=== PATIENT | female | born 1995 | race Caucasian/White ===

== ENCOUNTER 2017-02-03 14:18 | Day surgery (SDC) | payer OTHER ==
[2017-02-03 15:50] VITALS: BP 107/58; TEMP 99
[2017-02-03 15:52] VITALS: BMI 42.2
[2017-02-03] MEDS ORDERED: Ondansetron HCl/PF 4 MG/2 ML Vial IVP PRN (16:47)
[2017-02-03] MEDS ORDERED: Sodium Chloride 0.9% 1,000 ML IV SCH (17:00)
[2017-02-03] MEDS ORDERED: Lactated Ringer's 1,000 ML IV SCH (17:15)
[2017-02-03 17:23] LABS: Bilirubin Negative (Negative); Blood, Urine Negative (Negative); Glucose, Urine (Dipstick) Negative (Negative); Ketone, Urine 15 mg/dL (Negative); Nitrite Negative (Negative); Protein, Urine (Dipstick) Negative (Neg-Trace); Urobilinogen 0.2 mg/dL (0.2-1.0)
[2017-02-03] MEDS ORDERED: metroNIDAZOLE 500 MG TAB PO SCH (21:00)
== END 2017-02-03 20:20 | disposition home or self-care (01) ==
LOC: SCSER 14:18 → L&D/OP 15:19
PROVIDERS: ATTEND Student in an Organized Health Care Education/Training Program
DX: O47.03 False labor before 37 completed weeks of gestation, third trimester (principal); R56.9 Unspecified convulsions; J45.909 Unspecified asthma, uncomplicated; F41.9 Anxiety disorder, unspecified; Z3A.28 28 weeks gestation of pregnancy; Z88.8 Allergy status to other drugs, medicaments and biological substances
CPT/HCPCS: 81003; 87480; 87510; 87660; 96360; 96361; 96375; J2405

== ENCOUNTER 2017-02-13 20:56 | Emergency (ER) | payer OTHER ==
[2017-02-13 22:31] LABS: Bilirubin Small (Negative); Blood, Urine Negative (Negative); Glucose, Urine (Dipstick) Negative (Negative); Ketone, Urine Trace mg/dL (Negative); Nitrite Negative (Negative); Protein, Urine (Dipstick) Trace mg/dL (Neg-Trace); Urobilinogen 0.2 mg/dL (0.2-1.0)
[2017-02-13 22:33] LABS: Bacteria/HPF 1+ HPF (None Seen); Hyaline Casts/LPF 4-6 HYALINE CAST LPF (0-3 Hyaline)
[2017-02-13 22:36] LABS: #Basophils 0.1 thou/uL (0.0-0.2); #Eosinphils 0.3 thou/uL (0.0-0.7); #Lymphocytes 3.6 thou/uL (1.20-3.40); #Monocytes 1.1 thou/uL (0.11-0.59); #Neutrophils 10.7 thou/uL (1.40-6.50); %Basophils 0.5 % (0.0-1.0); %Eosinophils 2.1 % (0.0-10.0); %Lymphocytes 22.6 % (21.0-51.0); %Monocytes 6.7 % (0.0-10.0); Mean Platelet Volume 7.7 fL (7.4-10.4); Red Blood Cell (RBC) Count 4.43 mill/uL (4.20-5.40); White Blood Cell (WBC) Count 15.7 thou/uL (4.8-10.8)
[2017-02-13 22:49] LABS: RBC/HPF 0-3 HPF (0-3)
[2017-02-13 22:56] LABS: ALT (SGPT) 17 U/L (8-55); AST (SGOT) 14 U/L (5-34); Alkaline Phosphatase 103 U/L (40-150); Anion Gap 16 mmol/L (10-20); BUN (Urea Nitrogen) 6 mg/dL (7.0-18.7); Bilirubin, Total 0.3 mg/dL (0.2-1.2); Calc. Creatinine Clearance 0 mL/min (70-130); Calcium 9.4 mg/dL (7.8-10.44); Carbon Dioxide 19 mmol/L (22-29); Chloride 105 mmol/L (98-107); Estimated GFR-MDRD Greater than 90; Globulin 3.8 g/dL (2.4-3.5); Protein, Total 7.3 g/dL (6.0-8.3)
== END 2017-02-14 01:21 | disposition home or self-care (01) ==
LOC: ERS 20:56
DX: O99.353 Diseases of the nervous system complicating pregnancy, third trimester (principal); G40.909 Epilepsy, unspecified, not intractable, without status epilepticus; O99.513 Diseases of the respiratory system complicating pregnancy, third trimester; J45.909 Unspecified asthma, uncomplicated; O99.343 Other mental disorders complicating pregnancy, third trimester; F41.9 Anxiety disorder, unspecified; F32.9 Major depressive disorder, single episode, unspecified; F90.9 Attention-deficit hyperactivity disorder, unspecified type; Z87.891 Personal history of nicotine dependence; Z79.899 Other long term (current) drug therapy; Z3A.29 29 weeks gestation of pregnancy
CPT/HCPCS: 36415; 80053; 81003; 81015; 85025; 96360; 96361

== ENCOUNTER 2017-02-18 12:33 | Day surgery (SDC) | payer OTHER ==
[2017-02-18 13:18] VITALS: BP 99/53; BMI 42.2
[2017-02-18 13:53] LABS: Amnisure Test No Membranes Rupture (No Rupture)
[2017-02-18 14:34] LABS: Bilirubin Negative (Negative); Blood, Urine Negative (Negative); Glucose, Urine (Dipstick) Negative (Negative); Ketone, Urine Trace mg/dL (Negative); Nitrite Negative (Negative); Protein, Urine (Dipstick) Negative (Neg-Trace); Urobilinogen 0.2 mg/dL (0.2-1.0)
[2017-02-18 14:35] LABS: #Basophils 0.1 thou/uL (0.0-0.2); #Eosinphils 0.3 thou/uL (0.0-0.7); #Lymphocytes 2.5 thou/uL (1.20-3.40); #Monocytes 0.8 thou/uL (0.11-0.59); #Neutrophils 10.3 thou/uL (1.40-6.50); %Basophils 0.4 % (0.0-1.0); %Eosinophils 2.5 % (0.0-10.0); %Lymphocytes 18.1 % (21.0-51.0); %Monocytes 5.6 % (0.0-10.0); Hematocrit 37.1 % (36.0-47.0); Mean Platelet Volume 7.8 fL (7.4-10.4); Red Blood Cell (RBC) Count 4.29 mill/uL (4.20-5.40)
[2017-02-18] MEDS ORDERED: Adacel (T-DAP) 0.5 ML VIAL IM ONE (15:30)
[2017-02-19] MEDS ORDERED: FLU VACC QS2017-18 36 mo. & older 0.5 ML SYRINGE IM ONE (09:00)
== END 2017-02-18 17:15 | disposition home health service, planned readmission (86) ==
LOC: L&D/OP 12:33
PROVIDERS: ATTEND Family Medicine
DX: O26.893 Other specified pregnancy related conditions, third trimester (principal); O99.810 Abnormal glucose complicating pregnancy; O99.340 Other mental disorders complicating pregnancy, unspecified trimester; F32.9 Major depressive disorder, single episode, unspecified; O99.350 Diseases of the nervous system complicating pregnancy, unspecified trimester; G40.909 Epilepsy, unspecified, not intractable, without status epilepticus; Z3A.30 30 weeks gestation of pregnancy; Z79.899 Other long term (current) drug therapy; Z88.8 Allergy status to other drugs, medicaments and biological substances; Z91.19 Patient's noncompliance with other medical treatment and regimen; Z87.891 Personal history of nicotine dependence
CPT/HCPCS: 36415; 80177; 81003; 84112; 85025; 87086; 87480; 87510; 87660; 90715; 96372

== ENCOUNTER 2017-03-02 19:41 | Day surgery (SDC) | payer OTHER ==
[2017-03-02 20:27] VITALS: BMI 40.8
[2017-03-02] MEDS ORDERED: Acetaminophen 325 MG TAB PO PRN (20:54)
--- NOTE | 2017-03-02 21:59 | PDOC.LDHP ---
Addendum entered and electronically signed by Joby Ochoa DO 03/02/17 22: 31: 21 yo presents after suffering mechanical fall @ approx 1930 hrs. She denies loss of fluid and vaginal bleeding and reports movement since the fall. States she was walking up stairs with her dog and her son when she lost her footing. Denied loss of consciousness and pre-event aura. Original Note: Labor and Delivery H&P Chief complaint: contractions, abdominal pain, other (abdominal trauma) Current gestational age (weeks): 32 Due date: 04/27/17 Dating criteria: last menstrual period, first trimester ultrasound Grav: 4 Para: 1 OB History Details: glucose intolerance, h/o seizure disorder unknown type, h/o severe depression with SI Current complications: other (glucose intolerance, seizure disorder, makor depression) Past Medical History: glucose intolerance, seizure disorder, major depression Current medications: pre-harvey vitamins, other (keppra 1500mg/day, fluoxetine 10mg QD) Previous surgical history: none Social history: alcohol use (h/o, denies current use), drug use (h/o, denies current) - Physical Exam Vital signs reviewed and normal: yes General: NAD Heart: RRR Lungs: nonlabored breathing Abdomen: NTTP Extremeties: trace edema FHT: category 1, variability present [place] contractions every: 7-8 min - OB Labs Blood type: O RH: positive HIV: negative RPR: negative HEPSAg: negative 1 hour GCT: positive 3 hour GTT: negative GBS: unknown Urine drug screen: negative Rubella: immune - Plan Plan: observation in L&D, other ( monitoring for 4 hours to obs for evidence of distress) -: painful contractions with h/o abdominal trauma cat 1 strip, 140s baseline mod variability, + accels no decels external FHTs for 4 hours to obs for evidence of distress NPO for now given contractions, will keep pt and obs for 24 hours to assess contraction frequency/changes will check BPP and cervical length <Joby Ochoa - Last Filed: 03/02/17 22:03> <Karen Sepulveda - Last Filed: 03/03/17 00:06> Allergies/Adverse Reactions: Allergies Allergy/AdvReac Type Severity Reaction Status Date / Time triamcinolone [From Kenalog] Allergy Severe Anaphylaxis Verified 03/02/17 20:20 Attending Addendum - Attending Addendum I personally evaluated the patient and discussed the management with Dr. Ochoa on 03/02/17. I agree with the History, Examination, Assessment and Plan documented above with any addition or exceptions noted below. Patient's contractions have resolved after 4 hours of monitoring, and on discussion with residents and patient, it is agreed that she can be discharged home rather than observed for 24 hours. She did not experience blunt abdominal trauma and notes only musculoskeletal pain in her leg. Will recommend supportive care and Tylenol for musculoskeletal pain as well as close follow up. Cervical length is 3.7 and indicates very low risk of labor. ER precautions discussed. <Karen Sepulveda - Last Filed: 03/03/17 00:06>
--- NOTE | 2017-03-02 22:58 | ULT ---
HISTORY: Abdominal trauma, painful contractions. BIOPHYSICAL PROFILE 03/02/17 Multiple longitudinal and transverse images of an intrauterine is obtained using a multihe rtz curvilinear transducer. Real time, color flow and spectral waveform doppler analysis demonstrate s the cervical length to measure 3.7 cm. The fetus is in the cephalic presentation. The placenta is posterior. Cardiac activity measures 127 beats per minute. Amniotic fluid index measures 20.0 cm. BIOPHYSICAL PROFILE: tone = 2 breathing = 2 movement = 2 Amniotic fluid volume = 2 Composite = 8 out of 8. IMPRESSION: Biophysical profile measures 8 out of 8. Cardiac activity is confirmed measuring 127 beats per minut e. POS: [facility]
[2017-03-03 00:10] VITALS: TEMP 98.2
--- NOTE | 2017-03-03 00:49 | PDOC.LDPN ---
Labor & Delivery Progress Note - Subjective Subjective: comfortable, no concerns - Objective Vital signs reviewed and normal: yes General: NAD, resting Uterine fundus: non tender FHT: category 1, variability present [place] contractions every: absent - Assessment (1) Abdominal trauma Code(s): S39.91XA - UNSPECIFIED INJURY OF ABDOMEN, INITIAL ENCOUNTER Status: Acute (2) [place]' contraction Code(s): O47.9 - FALSE LABOR, UNSPECIFIED Status: Acute Comment: resolved, no contractions since 2199 (3) Status: Acute Qualifiers: Weeks of gestation: 32 weeks Qualified Code(s): Z3A.32 - 32 weeks gestation of Comment: US was normal. Will get set up with [place] [facility] to have better care Continue PNV Plan: other (dc home with f/u in clinic on 03/08) -: pt has not had a contraction since 2199 cat 1 strip throughout time on monitor since 1999 mod variability, + accels, - decels BPP 8/8 and cervical length 3.7 cm we will dc to home with instructions to f/u in clinic w/in one week <Joby Ochoa - Last Filed: 03/03/17 00:47> Attending Addendum - Attending Addendum I personally evaluated the patient and discussed the management with Dr. Ochoa on 03/01/17. I agree with the History, Examination, Assessment and Plan documented above with any addition or exceptions noted below. CTX resolved, after observation and evaluation there is no concern for abruption. Follow up closely as outpatient. <Karen Sepulveda - Last Filed: 03/03/17 23:17>
[2017-03-03] MEDS ORDERED: FLU VACC QS2017-18 36 mo. & older 0.5 ML SYRINGE IM ONE (09:00)
== END 2017-03-03 00:56 | disposition home or self-care (01) ==
LOC: L&D/OP 19:41
PROVIDERS: ATTEND Family Medicine
DX: O99.89 Other specified diseases and conditions complicating pregnancy, childbirth and the puerperium (principal); S39.91XA Unspecified injury of abdomen, initial encounter; O47.03 False labor before 37 completed weeks of gestation, third trimester; O99.340 Other mental disorders complicating pregnancy, unspecified trimester; F31.9 Bipolar disorder, unspecified; O99.350 Diseases of the nervous system complicating pregnancy, unspecified trimester; G40.909 Epilepsy, unspecified, not intractable, without status epilepticus; O99.52 Diseases of the respiratory system complicating childbirth; E74.39 Other disorders of intestinal carbohydrate absorption; J45.909 Unspecified asthma, uncomplicated; F90.9 Attention-deficit hyperactivity disorder, unspecified type; Y93.01 Activity, walking, marching and hiking; W10.9XXA Fall (on) (from) unspecified stairs and steps, initial encounter; Z3A.32 32 weeks gestation of pregnancy; Z79.899 Other long term (current) drug therapy; Z88.8 Allergy status to other drugs, medicaments and biological substances; Z87.891 Personal history of nicotine dependence
CPT/HCPCS: 76819

== ENCOUNTER 2017-04-03 02:32 | Day surgery (SDC) | payer OTHER ==
[2017-04-03 03:08] VITALS: BP 107/61; TEMP 98.5; BMI 45.2
[2017-04-03 03:48] LABS: Amnisure Test No Membranes Rupture (No Rupture)
--- NOTE | 2017-04-03 04:05 | PDOC.LDPN ---
Labor & Delivery Progress Note - Subjective Subjective: painful contractions, loss of fluid, no concerns - Objective Vital signs reviewed and normal: yes General: NAD, breathing through contractions Uterine fundus: non tender FHT: category 1, variability present (+ accels, no decels, baseline 140s) [place] contractions every: 4-10 minutes, irregular, minimal -: [place] contractions q4-10 minutes, cat 1 strip ,od variability, + accels, no decels, baseline 140s pt reports non-compliance with her medications for h/o seizure disorder and mod- severe depression continue external monitors, assess labor progression, po hydrate, amnisure negative, will order urine strait cath, VP3
--- NOTE | 2017-04-03 04:12 | PDOC.LDHP ---
Labor and Delivery H&P Chief complaint: contractions, loss of fluid HPI: 21 yo presents for painful contractions and loss of fluid. Reports good movement. Has a h/o epilepsy disorder, unknown type and was supposed to follow up with neurology and MFM for a cardiac echo and she has yet to see either. She admits to medication non-compliance for her seizre disorder and mod-severe depression. Current gestational age (weeks): 36 (5 days) Due date: 04/27/17 Dating criteria: last menstrual period, second trimester ultrasound Grav: 4 Para: 1 (1021) Current complications: other (seizure disorder, mod-severe depression) Abnormal US findings: No Current medications: pre- vitamins, other (keppra, folate, fluoxetine: non- compliant) Previous surgical history: none Allergies/Adverse Reactions: Allergies Allergy/AdvReac Type Severity Reaction Status Date / Time triamcinolone [From Kenalog] Allergy Severe Anaphylaxis Verified 03/02/17 20:20 Social history: alcohol use (prior), drug use (prior) - Physical Exam Vital signs reviewed and normal: yes Heart: RRR Lungs: nonlabored breathing Abdomen: NTTP FHT: category 1, variability present [place] contractions every: 4-10 minutes - Vaginal Exam cm dilated: 1 Effacement: 0% Station: -3 - OB Labs Blood type: O RH: positive Antibody Screen: negative HIV: negative RPR: negative HEPSAg: negative 1 hour GCT: negative 3 hour GTT: negative GBS: unknown Urine drug screen: negative Rubella: immune - Assessment labor check, r/o SROM cat 1, bl 140s, + accels, neg decels contractions q4-10 minutes, irregular, minimal vp3, ua, amnisure negative cervical exam 1, 0%, -3 po hydrate, continue external monitors - Plan Plan: observation in L&D -: @ 36.5 by lmp and 2nd tri US presents for painful contractions and loss of fluid labor check, r/o SROM cat 1, bl 140s, + accels, neg decels contractions q4-10 minutes, irregular, minimal vp3, ua, amnisure negative, GBS culture cervical exam 1, 0%, -3 po hydrate, continue external monitors, likely d/c home FOLLOW UP IN CLINIC.
[2017-04-03 04:26] LABS: Bilirubin Negative (Negative); Blood, Urine Negative (Negative); Glucose, Urine (Dipstick) Negative (Negative); Ketone, Urine Negative (Negative); Nitrite Negative (Negative); Protein, Urine (Dipstick) Negative (Neg-Trace)
== END 2017-04-03 05:10 | disposition home or self-care (01) ==
LOC: L&D/OP 02:32
PROVIDERS: ATTEND Family Medicine
DX: O47.03 False labor before 37 completed weeks of gestation, third trimester (principal); O99.353 Diseases of the nervous system complicating pregnancy, third trimester; G40.909 Epilepsy, unspecified, not intractable, without status epilepticus; O99.343 Other mental disorders complicating pregnancy, third trimester; F32.2 Major depressive disorder, single episode, severe without psychotic features; Z3A.36 36 weeks gestation of pregnancy; Z79.899 Other long term (current) drug therapy; Z91.14 Patient's other noncompliance with medication regimen; Z88.8 Allergy status to other drugs, medicaments and biological substances
CPT/HCPCS: 81003; 84112; 87081; 87480; 87510; 87660

== ENCOUNTER 2017-04-09 22:18 | Day surgery (SDC) | payer OTHER ==
[2017-04-09 22:54] VITALS: BMI 45.4
--- NOTE | 2017-04-10 01:05 | PDOC.LDHP ---
Labor and Delivery H&P Chief complaint: contractions HPI: 21 yo @ 37.4 by lmp and 2nd tri US presents for contractions which she states have become stronger and more frequent. Denies loss of fluid and reports good movement. Additionally, complains of urinary frequency/urgency. Denies fever, chills, cp, sob and headache. Pt requests something be done to speed up /delivery. Encouraged pt to attempt to follow up in clinic since majority of her care has been on frequent presentations to the l& d unit. Current gestational age (weeks): 37 (4 days) Due date: 04/27/17 Dating criteria: last menstrual period, second trimester ultrasound Grav: 4 Para: 1 (1021) Current complications: other (seizure disorder, unknown type moderate to severe depression with h/o suicidal ideation) Abnormal US findings: No Current medications: pre-harvey vitamins Previous surgical history: none Allergies/Adverse Reactions: Allergies Allergy/AdvReac Type Severity Reaction Status Date / Time triamcinolone [From Kenalog] Allergy Severe Anaphylaxis Verified 03/02/17 20:20 Social history: tobacco use (prior), alcohol use (prior), drug use (prior) - Physical Exam Vital signs reviewed and normal: yes General: NAD Heart: RRR Lungs: CTAB Abdomen: gravid Extremeties: trace edema FHT: category 1, variability present [place] contractions every: 7-10 minutes - Vaginal Exam cm dilated: 1 Effacement: 25% Station: -2 - OB Labs Blood type: O RH: positive Antibody Screen: negative HIV: negative RPR: negative HEPSAg: negative 1 hour GCT: positive 3 hour GTT: negative GBS: negative Urine drug screen: negative Rubella: immune - Assessment contractions urinary frequency - Plan Plan: observation in L&D -: po hydrate continue external monitors cervical check 2 hrs apart pt made no change, both 1, 20%, -2 cat 1 strip, no concerns will get strait cath UA and send for culture if bacteria present DC home with instructions to f/u in clinic
[2017-04-10 01:48] LABS: Bilirubin Negative (Negative); Blood, Urine Negative (Negative); Glucose, Urine (Dipstick) Negative (Negative); Ketone, Urine Negative (Negative); Nitrite Negative (Negative); Protein, Urine (Dipstick) Negative (Neg-Trace); Urobilinogen 0.2 mg/dL (0.2-1.0)
== END 2017-04-10 02:45 | disposition home or self-care (01) ==
LOC: L&D/OP 22:18
PROVIDERS: ATTEND Family Medicine
DX: O47.1 False labor at or after 37 completed weeks of gestation (principal); Z88.8 Allergy status to other drugs, medicaments and biological substances; Z3A.37 37 weeks gestation of pregnancy; Z87.891 Personal history of nicotine dependence
CPT/HCPCS: 81003

== ENCOUNTER 2017-04-26 16:47 | Inpatient (IN) | payer OTHER ==
[2017-04-26 17:18] VITALS: BMI 47.0
[2017-04-26] MEDS ORDERED: Acetaminophen 500 MG TAB PO PRN (18:25)
[2017-04-26] MEDS ORDERED: Promethazine HCl 25 MG/ML VIAL IM PRN (18:25)
[2017-04-26] MEDS ORDERED: Ondansetron HCl/PF 4 MG/2 ML Vial IVP PRN (18:25)
[2017-04-26] MEDS: Lactated Ringer's 1,000 ML IV SCH (19:02)
[2017-04-26 19:22] LABS: Hematocrit 34.8 % (36.0-47.0); Mean Platelet Volume 8.8 fL (7.4-10.4); Red Blood Cell (RBC) Count 4.09 mill/uL (4.20-5.40); White Blood Cell (WBC) Count 12.9 thou/uL (4.8-10.8)
[2017-04-26 20:59] LABS: Bilirubin Negative (Negative); Blood, Urine Negative (Negative); Glucose, Urine (Dipstick) Negative (Negative); Ketone, Urine Trace mg/dL (Negative); Nitrite Negative (Negative); Protein, Urine (Dipstick) Negative (Neg-Trace); Urobilinogen 0.2 mg/dL (0.2-1.0)
[2017-04-26 21:01] LABS: Bacteria/HPF None Seen HPF (None Seen); Hyaline Casts/LPF 0-3 HYALINE CAST LPF (0-3 Hyaline); RBC/HPF 0-3 HPF (0-3); Squamous Epithelial 0-3 HPF (0-3); WBC/HPF 0-3 HPF (0-3)
[2017-04-26 21:07] LABS: Amphetamine Not Detected (NotDetected); Methadone Not Detected (NotDetected); Methamphetamine Not Detected (NotDetected)
--- NOTE | 2017-04-26 21:28 | ULT ---
BIOPHYSICAL PROFILE: Date: 04-26-17 Provided Clinical History: tachycardia. FINDINGS: tone 2/2. breathing 2/2. movements 2/2. Amniotic fluid 2/2. Total: 8 Heart rate 139 beats/minute. MUMTAZ is 7. IMPRESSION: Normal biophysical profile. POS: [facility]
--- NOTE | 2017-04-26 21:34 | PDOC.LDPN ---
Labor & Delivery Progress Note - Subjective Subjective: comfortable - Objective Vital signs reviewed and normal: yes General: NAD, resting Uterine fundus: non tender SVE: 2/40/-2, midposition, soft at 2135 Dilation: 2 Effacement: 50% Station: -2 FHT: category 1 [place] contractions every: every 10 minutes, accels present, no decels - Assessment (1) Term Code(s): Z34.80 - ENCOUNTER FOR SUPRVSN OF NORMAL , UNSP TRIMESTER Current Visit: Yes Status: Acute Comment: 21 yo F at 39.6 wks, MARISSA 04/27/17. Dated by 2nd Trimester U/S on 11/05/16 Presented to L&D with contractions all day, loss of mucous plug yesterday, no loss of fluid or bleeding. Medical hx of seizure disorder, on Keppra. Last seizure was 2 wks ago and patient has not been taking Keppra since then. Pt did endorse smoking, marijuana use, and alcohol use prior to finding out she was during this . She has a history of 2 Spontaneous AB on first and third during the first trimester both times. No U/S abnormalities. Initial check on admission was 140/-2, which was consistent with check from previous office visit 5 days prior. Blood type: O+ RPR: Non-reactive Rubella: Immune HIV: Negative HbsAg: Negative GBS: Negative 04/26/2017 BPP: 88 with MUMTAZ of 7 Plan: continue plan of care -: We will do cervical check in 4 hours. Consider pitocin induction at 6 am. Continue external monitoring.
--- NOTE | 2017-04-27 02:03 | PDOC.LDPN ---
Labor & Delivery Progress Note - Subjective Subjective: comfortable - Objective Vital signs reviewed and normal: yes General: NAD, resting, breathing through contractions Uterine fundus: non tender SVE: 3/50/-2 Midposition, Soft Dilation: 3 Effacement: 50% Station: -2 FHT: category 1 (Baseline 130, Accels Present, No Decels, toco ctx greater than 10 min apart) [place] contractions every: > q10min - Assessment (1) Term Code(s): Z34.80 - ENCOUNTER FOR SUPRVSN OF NORMAL , UNSP TRIMESTER Current Visit: Yes Status: Acute Comment: 21 yo F at 39.6 wks, MARISSA 04/27/17. Dated by 2nd Trimester U/S on 11/05/16 Presented to L&D with contractions all day, loss of mucous plug yesterday, no loss of fluid or bleeding. Medical hx of seizure disorder, on Keppra. Last seizure was 2 wks ago and patient has not been taking Keppra since then. Pt did endorse smoking, marijuana use, and alcohol use prior to finding out she was during this . She has a history of 2 Spontaneous AB on first and third during the first trimester both times. No U/S abnormalities. Initial check on admission was /-2, which was consistent with check from previous office visit 5 days prior. Blood type: O+ RPR: Non-reactive Rubella: Immune HIV: Negative HbsAg: Negative GBS: Negative 04/26/2017 BPP: 8/8 with MUMTAZ of 7 Plan: continue plan of care -: Continue intermittent external monitoring. Continue ambulation. Will recheck to assess for cervical change in 4 hours.
[2017-04-27] MEDS: Lactated Ringer's 1,000 ML IV SCH ×2 (04:02→12:26)
[2017-04-27] MEDS: Ketotifen Fumarate 0.025% Ophth Soln 5 ml Bottle L EYE SCH ×3 (05:58→22:07)
--- NOTE | 2017-04-27 07:02 | PDOC.LDPN ---
Labor & Delivery Progress Note - Subjective Subjective: comfortable - Objective Vital signs reviewed and normal: yes General: NAD Uterine fundus: non tender Dilation: 3cm Effacement: 50% Station: -2 FHT: category 1 (Moderate variability, Accels present, no decels present. ) Resuscitative measures: maternal IV fluids - Assessment (1) Term Code(s): Z34.80 - ENCOUNTER FOR SUPRVSN OF NORMAL , UNSP TRIMESTER Current Visit: Yes Status: Acute Comment: 21 yo F at 39.6 wks, MARISSA 04/27/17. Dated by 2nd Trimester U/S on 11/05/16 Presented to L&D with contractions all day, loss of mucous plug yesterday, no loss of fluid or bleeding. -Will place Cook Balloon for mechanical dilation prior to initiating pitocin for augmentation. -Continue q4h checks or if Balloon becomes loose. Plan: continue plan of care, labor augmentation, resuscitative measures <Oscar Donaldson - Last Filed: 04/27/17 07:35> Attending Addendum - Attending Addendum I personally evaluated the patient and discussed the management with Dr. Donaldson I agree with the History, Examination, Assessment and Plan documented above with any addition or exceptions noted below. 21 yo female at 40.0 wks by 15.2 wk sono admitted for IOL 2/2 nonreassuring status. 1. sIUP: Poor follow up. IOB labs reviewed. Anatomy reviewed at [facility]. 1 hour gtt = 149. 3 hour gtt = 95/167/144/110. 3T negative. Unsure immunization status. GBS negative. Membranes intact. Fetus cephalic with posterior placenta. Unsure of EFW due to maternal habitus but fundal ht appropriate 8 lbs. 2. Poor/incomplete care 3. hx of seizure d/o: Continue keppra. Refused MFM and neurology during care. Needs neurology pp. Elpidio notified. Gross anatomy wnl. 4. Glucose intolerance: Random POC glucose pending 5. IOL 2/2 variable deceleration during latent labor: Progressing well. Cooks balloon in at 0900. Pitocin protocol. Cat 1. 6. Maternal obesity: Risk for complications. Continue current care. ABrayMD <Liliya Hamm - Last Filed: 04/27/17 11:56>
--- NOTE | 2017-04-27 09:19 | PDOC.LDPN ---
Labor & Delivery Progress Note - Subjective Subjective: comfortable - Objective Vital signs reviewed and normal: yes General: NAD Uterine fundus: non tender Dilation: 2cm Effacement: 50% Station: -2 FHT: category 1 Resuscitative measures: maternal oxygen, maternal IV fluids - Assessment (1) Term Code(s): Z34.80 - ENCOUNTER FOR SUPRVSN OF NORMAL , UNSP TRIMESTER Current Visit: Yes Status: Acute Comment: 21 yo F at 39.6 wks, MARISSA 04/27/17. Dated by 2nd Trimester U/S on 11/05/16 Presented to L&D with contractions all day, loss of mucous plug yesterday, no loss of fluid or bleeding. -Current check 2 / 50% / -2 -Will place Cook Balloon for mechanical dilation. Infused to 60ml capacity. -Pitocin initiated -Continue q4h checks or if Balloon becomes loose. Plan: continue plan of care, pitocin for augmentation, resuscitative measures <Oscar Donaldson - Last Filed: 04/27/17 09:18> Attending Addendum - Attending Addendum I personally evaluated the patient and discussed the management with Dr. Donaldson I agree with the History, Examination, Assessment and Plan documented above with any addition or exceptions noted below. 21 yo female at 40.0 wks by 15.2 wk sono admitted for IOL 2/2 nonreassuring status. 1. sIUP: Poor follow up. IOB labs reviewed. [facility] 1 hour gtt = 149. 3 hour gtt = 95/167/144/110. 3T negative. Unsure immunization status. GBS negative. Membranes intact. Fetus cephalic with posterior placenta. Unsure of EFW due to maternal habitus but fundal ht appropriate 8 lbs. 2. Poor/incomplete care 3. hx of seizure d/o: Continue keppra. Refused MFM and neurology during care. Needs neurology pp. Elpidio notified. Gross anatomy wnl. 4. Glucose intolerance: Random POC glucose pending 5. IOL 2/2 variable deceleration during latent labor: Progressing well. Cooks balloon in at 0900 without complications. Pitocin protocol. Cat 1. 6. Maternal obesity: Risk for complications. BMI = 47. Continue current care. Repeat exam prn or in 4 hours. Will likely need AROM due to difficulty with monitoring due to maternal habitus. Christy <Liliya Hamm - Last Filed: 04/27/17 11:58>
[2017-04-27] MEDS ORDERED: LR 500 ML/Oxytocin 10 units 500 ML ONE (10:03)
[2017-04-27] MEDS ORDERED: LR 500 ML/Oxytocin 10 units 500 ML IV SCH (10:15)
[2017-04-27] MEDS ORDERED: Fentanyl 4 mcg/Marc 0.1% Cadd 100 ML ONE (14:03)
[2017-04-27] MEDS ORDERED: Eucerin (Mineral Oil/Petrolatum,White) 30 gm Jar TOP PRN (14:24)
[2017-04-27] MEDS ORDERED: diphenhydrAMINE 50 MG/ML VIAL IVP PRN (14:24)
[2017-04-27] MEDS ORDERED: Naloxone HCl 0.4 mg/ml Vial IVP PRN ×2 (14:24)
[2017-04-27] MEDS ORDERED: ePHEDrine/0.9% NaCl/PF SYRINGE 50 mg/10 ml SLOW IVP PRN (14:24)
[2017-04-27] MEDS ORDERED: Lactated Ringer's 500 ML IV PRN (14:24)
[2017-04-27] MEDS ORDERED: Acetaminophen 325 MG TAB PO PRN (14:24)
[2017-04-27] MEDS ORDERED: Ondansetron HCl/PF 4 MG/2 ML Vial IVP PRN (14:24)
[2017-04-27] MEDS ORDERED: Promethazine HCl 25 MG/ML VIAL IM PRN (14:24)
[2017-04-27] MEDS ORDERED: Fentanyl 4mcg/Marcaine 0.1% Cassette 100 ML EPIDURAL SCH (14:30)
[2017-04-27] MEDS ORDERED: Communication Order-Pharmacy FS SCH (14:30)
--- NOTE | 2017-04-27 14:48 | PDOC.LDPN ---
Addendum entered and electronically signed by Michel Luo, 04/27/17 15:04 : Epidural given at approx 14:00 per patient request due to pain. Original Note: Labor & Delivery Progress Note - Objective Abnormal vital signs: one elevated BP of 156/70 when getting epidural, normalized at next BP chec General: breathing through contractions Dilation: 6 Effacement: 50% Station: -2 FHT: category 2, variable decelerations (one variable deceleration) [place] contractions every: 2-3 min - Assessment (1) Term Code(s): Z34.80 - ENCOUNTER FOR SUPRVSN OF NORMAL , UNSP TRIMESTER Current Visit: Yes Status: Acute Comment: 21 yo F at 39.6 wks, MARISSA 04/27/17. Dated by 2nd Trimester U/S on 11/05/16 Presented to L&D with contractions all day, loss of mucous plug yesterday. -Current check 6 / 50% / -2 -Continue with pitocin, currently at 6 -SROM at approx 13:00 with light mec per nurse -continue with checks q2hr as needed (2) History of seizure Code(s): Z87.898 - PERSONAL HISTORY OF OTHER SPECIFIED CONDITIONS Current Visit: Yes Status: Acute Comment: continue keppra, recommend neuro consult (3) Glucose intolerance of Code(s): O99.810 - ABNORMAL GLUCOSE COMPLICATING Current Visit: Yes Status: Acute Comment: POC glucose 78 Plan: continue plan of care, labor augmentation, pitocin for augmentation <Michel Luo - Last Filed: 04/27/17 14:42> Attending Addendum - Attending Addendum I personally evaluated the patient and discussed the management with Dr. Luo I agree with the History, Examination, Assessment and Plan documented above with any addition or exceptions noted below. 21 yo female at 40.0 wks by 15.2 wk sono admitted for IOL 2/2 nonreassuring status. 1. sIUP: Poor follow up. IOB labs reviewed. Anatomy reviewed at [facility]. 1 hour gtt = 149. 3 hour gtt = 95/167/144/110. 3T negative. Unsure immunization status. GBS negative. Membranes SROM. Fetus cephalic with posterior placenta. Unsure of EFW due to maternal habitus but fundal ht appropriate ~8 lbs. 2. Poor/incomplete care 3. hx of seizure d/o: Continue keppra. Refused MFM and neurology during care. Needs neurology pp. Elpidio notified. Gross anatomy wnl. 4. Glucose intolerance: Random POC glucose 78 5. IOL 2/2 variable deceleration during latent labor: Progressing well. Cooks balloon in at 0900 and out at 11:00 without complications. Pitocin per protocol. Cat 1 with occasional cat 2. 6. Maternal obesity: Risk for complications. BMI = 47. Continue current care. Repeat exam prn or in [address] internal monitors. HarrisonMD <Liliya Hamm - Last Filed: 04/28/17 16:50>
[2017-04-27] MEDS ORDERED: LR / Pitocin 40 units/1000 ml 1,000 ML ONE ×2 (15:26→17:16)
[2017-04-27 15:48] LABS: CO2 Tension (PaCO2) 45.6 mmHg (44.0-56.0)
[2017-04-27] MEDS ORDERED: Ampicillin/Sulbactam 3 GM in Sodium Chloride 0.9% 100 ML IVPB SCH ×4 (17:30→21:00)
[2017-04-27] MEDS ORDERED: LR / Pitocin 40 units/1000 ml 1,000 ML IV SCH (17:40)
[2017-04-27] MEDS ORDERED: Adacel (T-DAP) 0.5 ML VIAL IM ONE (17:40)
[2017-04-27] MEDS ORDERED: Bisacodyl 10 MG SUPP PR PRN (17:40)
[2017-04-27] MEDS ORDERED: Milk Of Magnesia 30 ML UDCUP PO PRN (17:40)
[2017-04-27] MEDS ORDERED: Ampicillin/Sulbactam 3 GM, Syringe 1.6 ML in Sterile Water 6.4 ML SLOW IVP SCH (18:00)
[2017-04-27] MEDS: Ferrous Sulfate 325 MG TAB PO SCH (18:14)
[2017-04-27] MEDS: Ibuprofen 800 MG TAB PO SCH (22:06)
[2017-04-27] MEDS: Docusate (Surfak) 240 MG CAP PO SCH (22:06)
[2017-04-28] MEDS: Ampicillin/Sulbactam 3 GM in Sodium Chloride 0.9% 100 ML IVPB SCH ×3 (03:53→15:04)
[2017-04-28] MEDS ORDERED: Sodium Chloride 0.9% 500 ML IV SCH (04:15)
[2017-04-28] MEDS ORDERED: Benzocaine/Menthol 20-0.5% 60 ML CAN TOP PRN (05:49)
[2017-04-28] MEDS ORDERED: Ampicillin/Sulbactam 3 GM, Syringe 1.6 ML in Sterile Water 6.4 ML SLOW IVP SCH ×2 (06:00→09:00)
--- NOTE | 2017-04-28 06:02 | DN-2 ---
DELIVERING PHYSICIAN: Michel Luo D.O. ATTENDING: Denis Gregory MD and Karen Marquez M.D. PROCEDURE: Spontaneous vaginal delivery. ANESTHESIA: Epidural. ESTIMATED BLOOD LOSS: 250 mL. PREOPERATIVE DIAGNOSES: 1. Term intrauterine in labor. 2. History of seizures, on Keppra until approximately 2 weeks before delivery. 3. Glucose tolerance. POSTOPERATIVE DIAGNOSES: 1. Term intrauterine delivered. 2. History of seizures. INDICATIONS: A 21-year-old G4, P2-0-2-2 at 40.0 weeks who delivered a viable male infant at 15:39. During the antepartum course, mom did have recurrent variables which caused us to put in a scal p monitor. Otherwise, antepartum course was uneventful. After this time, a vigorous male was delive red over an intact perineum in the OP position, which was attributed to NEETA, anterior shoulder and th en the remainder of the body delivered. Nuchal cord x1. The head was down, mouth and nares were bul b suctioned, cord clamped and cut and cord blood collected. Additionally, blood gas was collected wh ich showed a pH of 7.33, pCO2 of 45.6, bicarb of 23.9, base excess of negative 2.2. During delivery of the placenta, cord was avulsed with manual extraction and followup ultrasound showing a maximum st ripe of 1.6 cm. Fundal massage was performed and the fundus was firm. The cervix, vagina were inspe cted and found to be free of lacerations. was initially evaluated by team and found to be in good condition and returned to [facility] for skin to skin time. The patient too planned to go to nursery in good condition for routine care. Apgars were 8 and 9 at 1 and 5 minutes respectiv diogenes. The patient tolerated delivery well, went to after routine recovery/care. Dr. Jakob christensen was present during the entire delivery.
[2017-04-28] MEDS: Ibuprofen 800 MG TAB PO SCH ×3 (06:03→21:37)
--- NOTE | 2017-04-28 06:10 | PDOC.PP ---
Post Progress Note Post Day #: 1 Subjective: Patient had a good night. She is on the antibiotics because of the manual extraction of her placenta. She is able to get up and walk around a bit. She states she is hungry this morning. She has no other concerns today. PO intake tolerated: yes Flatus: yes Ambulation: yes Vital Signs (12 hours) Temp Pulse Resp BP Pulse Ox 04/28/17 03:50 97.9 F 62 20 105/56 L 04/28/17 00:55 98.1 F 71 20 125/78 04/27/17 22:15 98.9 F 78 20 122/60 04/27/17 20:50 98.1 F 88 20 124/75 04/27/17 19:15 98.0 F 91 20 129/67 97 Weight Weight 105.687 kg - Physical Examination General: NAD Cardiovascular: no m/r/g, RRR Respiratory: clear to auscultation bilaterally, non-labored breathing Abdominal: + bowel sounds, lochia, no distention, appropriately TTP Fundus firm & at: below umbilicus Extremities: negative homans (B) Neurological: no gross focal deficits Psychiatric: A&Ox3, normal affect Result Diagrams: 04/28/17 06:21 Additional Labs: Post Labs Blood Type O POSITIVE 04/26/17 19:00 Hep Bs Antigen Non-Reactive S/CO (NonReactive) 04/26/17 19:00 (1) Term delivered Code(s): O80 - ENCOUNTER FOR FULL-TERM UNCOMPLICATED DELIVERY Status: Acute Comment: 21 yo F at 40.0wks, MARISSA 04/27/17. Dated by 2nd Trimester U/S on 11/05/16 delivered TAGA viable male at 15:39 on 04/27/17 APGARs 8 & 9. EBL 250. 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 - Assessment/Plan Continue antibiotics today and likely discharge tomorrow. <Oscar Donaldson - Last Filed: 04/28/17 09:18> Vital Signs (12 hours) Temp Pulse Resp BP 04/28/17 12:49 98.4 F 71 20 106/54 L 04/28/17 12:00 98.4 F 71 20 04/28/17 08:24 97.7 F 72 20 123/70 04/28/17 08:00 98.4 F 71 20 Weight Weight 105.687 kg Result Diagrams: 04/28/17 06:21 Additional Labs: Post Labs Blood Type O POSITIVE 04/26/17 19:00 Hep Bs Antigen Non-Reactive S/CO (NonReactive) 04/26/17 19:00 <Liliya Hamm - Last Filed: 04/28/17 16:55> Attending Addendum - Attending Addendum I personally evaluated the patient and discussed the management with Dr. Donaldson I agree with the History, Examination, Assessment and Plan documented above with any addition or exceptions noted below. 21 yo now female s/p at 40.0 wks on 04/27/17 complicated by cord avulsion and manual extraction of placenta. 1. s/p : Doing well. Continue routine PP care. Pain controlled. . Stop narcotic pain meds. 2. Cord avulsion with manual placental extraction: PPX antibiotics. Placenta to path. Fundus firm and nontender. Afebrile. 3. Poor/incomplete care: doing well. 4. hx of seizure d/o: Continue keppra. Refused MFM and neurology during care. Needs neurology pp. 5. Maternal obesity: BMI = 47. Lifestyle modifications. Continue current care. ABrayMD <Liliya Hamm - Last Filed: 04/28/17 16:55>
[2017-04-28 06:45] LABS: Hematocrit 34.9 % (36.0-47.0); Mean Platelet Volume 8.9 fL (7.4-10.4); Red Blood Cell (RBC) Count 4.06 mill/uL (4.20-5.40); White Blood Cell (WBC) Count 16.1 thou/uL (4.8-10.8)
[2017-04-28] MEDS: Ferrous Sulfate 325 MG TAB PO SCH ×2 (09:47→19:17)
[2017-04-28] MEDS: Docusate (Surfak) 240 MG CAP PO SCH ×2 (09:48→21:37)
[2017-04-28] MEDS: Ketotifen Fumarate 0.025% Ophth Soln 5 ml Bottle L EYE SCH ×2 (09:49→21:37)
[2017-04-28] MEDS ORDERED: HYDROcodone/Acetaminophen 5/325 mg Tablet PO PRN (17:40)
[2017-04-28] MEDS ORDERED: Acetaminophen/Codeine 30-300mg Tablet PO PRN (17:40)
[2017-04-28] MEDS: levETIRAcetam 500 MG TAB PO SCH (21:37)
[2017-04-28 23:49] VITALS: BP 122/63
[2017-04-29] MEDS: Ibuprofen 800 MG TAB PO SCH ×2 (06:11→14:39)
--- NOTE | 2017-04-29 06:33 | PDOC.PP ---
Post Progress Note Post Day #: 2 Subjective: Patient resting well. No pain, able to get up and ambulate around hospital. was going well until the last feed and she says it is more him falling asleep while feeding. She denies n/v/d. She is tolerating the keppra well. Patient was counseled on circumcision that will be performed today. No concerns otherwise. PO intake tolerated: yes Flatus: yes Ambulation: yes Vital Signs (12 hours) Temp Pulse Resp BP 04/28/17 20:00 98.3 F 73 20 122/63 Weight Weight 105.687 kg - Physical Examination General: NAD Cardiovascular: no m/r/g, RRR Respiratory: clear to auscultation bilaterally, non-labored breathing Abdominal: + bowel sounds, lochia, no distention, appropriately TTP Extremities: negative homans (B) Neurological: no gross focal deficits Psychiatric: A&Ox3 Result Diagrams: 04/28/17 06:21 Additional Labs: Post Labs Blood Type O POSITIVE 04/26/17 19:00 Hep Bs Antigen Non-Reactive S/CO (NonReactive) 04/26/17 19:00 (1) Term delivered Code(s): O80 - ENCOUNTER FOR FULL-TERM UNCOMPLICATED DELIVERY Status: Acute Comment: 21 yo F at 40.0wks, MARISSA 04/27/17. Dated by 2nd Trimester U/S on 11/05/16 delivered TAGA viable male at 15:39 on 04/27/17 APGARs 8 & 9. EBL 250. 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 - Assessment/Plan Likely discharge home today. <Oscar Donaldson - Last Filed: 04/29/17 08:03> Vital Signs (12 hours) Temp Pulse Resp 04/29/17 07:50 98.0 F 70 16 Weight Weight 105.687 kg Result Diagrams: 04/28/17 06:21 Additional Labs: Post Labs Blood Type O POSITIVE 04/26/17 19:00 Hep Bs Antigen Non-Reactive S/CO (NonReactive) 04/26/17 19:00 <Liliya Hamm - Last Filed: 04/29/17 14:37> Attending Addendum - Attending Addendum I personally evaluated the patient and discussed the management with Dr. Donaldson I agree with the History, Examination, Assessment and Plan documented above with any addition or exceptions noted below. 21 yo now female s/p at 40.0 wks on 04/27/17 complicated by cord avulsion and manual extraction of placenta. 1. s/p : Doing well. Ok for d/c today. Precautions discussed. 2. Cord avulsion with manual placental extraction: s/p PPX antibiotics. Placenta to path. Fundus firm and nontender. Afebrile. Precautions discussed. 3. Poor/incomplete care: doing well. 4. hx of seizure d/o: Continue keppra. Refused MFM and neurology during care. Needs neurology pp. 5. Maternal obesity: BMI = 47. Lifestyle modifications. 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 Discharge later today. Follow up with PCP in 2 wks. Needs neurology referral. Precautions discussed. ABrnilaMD <Liliya Hamm - Last Filed: 04/29/17 14:37>
[2017-04-29] MEDS: Docusate (Surfak) 240 MG CAP PO SCH (08:30)
[2017-04-29] MEDS: levETIRAcetam 500 MG TAB PO SCH (08:30)
[2017-04-29] MEDS: Ketotifen Fumarate 0.025% Ophth Soln 5 ml Bottle L EYE SCH (08:30)
[2017-04-29 09:01] VITALS: TEMP 98
[2017-04-29] MEDS: Ferrous Sulfate 325 MG TAB PO SCH (09:02)
== END 2017-04-29 16:00 | disposition home or self-care (01) | DRG 775 ==
LOC: L&D/OP 16:47 → L&D 19:32 → 3SW 04-27 19:08
PROVIDERS: ADMIT Family Medicine; ATTEND Family Medicine
PROC: 0U7C7ZZ Dilation of Cervix, Via Natural or Artificial Opening (ICD-10-PCS; 2017-04-26)
PROC: 10E0XZZ Delivery of Products of Conception, External Approach (ICD-10-PCS; principal; 2017-04-27)
DX: O99.354 Diseases of the nervous system complicating childbirth (principal); Z68.42 Body mass index [BMI] 45.0-49.9, adult; F33.9 Major depressive disorder, recurrent, unspecified; G40.509 Epileptic seizures related to external causes, not intractable, without status epilepticus; O99.814 Abnormal glucose complicating childbirth; Z3A.39 39 weeks gestation of pregnancy; Z37.0 Single live birth; O69.1XX0 Labor and delivery complicated by cord around neck, with compression, not applicable or unspecified; E74.39 Other disorders of intestinal carbohydrate absorption; E66.01 Morbid (severe) obesity due to excess calories; O99.214 Obesity complicating childbirth; O99.344 Other mental disorders complicating childbirth; J45.909 Unspecified asthma, uncomplicated; O99.52 Diseases of the respiratory system complicating childbirth
CPT/HCPCS: 36415; 36416; 51702; 76815; 76819; 80306; 81001; 82805; 85027; 86780; 86850; 86900; 86901; 87340; 87389; 90715; 99284; A4216; C1726; J0295; J0595; J1953; J2550; J7050; J7120

== ENCOUNTER 2017-07-15 16:20 | Emergency (ER) | payer OTHER ==
[2017-07-15] MEDS ORDERED: Ketorolac Tromethamine 30 MG/ML VIAL ONE (17:18)
== END 2017-07-15 17:33 | disposition home or self-care (01) ==
LOC: ERS 16:20
DX: K03.81 Cracked tooth (principal); K04.7 Periapical abscess without sinus; G40.909 Epilepsy, unspecified, not intractable, without status epilepticus; J45.909 Unspecified asthma, uncomplicated; F32.9 Major depressive disorder, single episode, unspecified; F41.9 Anxiety disorder, unspecified; F90.9 Attention-deficit hyperactivity disorder, unspecified type
CPT/HCPCS: 96372; J1885

== ENCOUNTER 2017-07-17 11:59 | Emergency (ER) | payer OTHER | END 2017-07-17 13:00 | disposition home or self-care (01) | LOC: ERS 11:59 | DX: K02.9 Dental caries, unspecified (principal); G40.909 Epilepsy, unspecified, not intractable, without status epilepticus; J45.909 Unspecified asthma, uncomplicated; F41.9 Anxiety disorder, unspecified; F32.9 Major depressive disorder, single episode, unspecified; F90.9 Attention-deficit hyperactivity disorder, unspecified type; F17.210 Nicotine dependence, cigarettes, uncomplicated; Z79.899 Other long term (current) drug therapy | CPT/HCPCS: 99282 ==

== ENCOUNTER 2018-06-17 20:30 | Emergency (ER) | payer OTHER, SELFPAY ==
[2018-06-17] MEDS ORDERED: Lidocaine 1% w/Epinephrine 1:100K 20 ML VIAL ONE (20:51)
[2018-06-17] MEDS ORDERED: Ondansetron PF 4 MG/2 ML Vial ONE ×2 (20:55→22:06)
[2018-06-17 21:00] LABS: #Basophils 0.1 thou/uL (0.0-0.2); #Eosinphils 0.3 thou/uL (0.0-0.7); #Lymphocytes 4.6 thou/uL (1.20-3.40); #Monocytes 0.8 thou/uL (0.11-0.59); #Neutrophils 8.3 thou/uL (1.40-6.50); %Basophils 0.6 % (0.0-1.0); %Eosinophils 2.2 % (0.0-10.0); %Lymphocytes 32.6 % (21.0-51.0); %Monocytes 5.9 % (0.0-10.0); %Neutrophils 58.8 % (42.0-75.0); Hemoglobin 13.9 g/dL (12.0-16.0); Mean Corpuscular HGB CONC 34.1 g/dL (32.0-36.0); Mean Corpuscular Hemoglobin 28.9 pg (27.0-31.0); Mean Corpuscular Volume 84.7 fL (78.0-98.0); Mean Platelet Volume 7.5 fL (7.4-10.4); Platelet Count 412 thou/uL (130-400); RBC Distribution Width 12.6 % (11.5-14.5); Red Blood Cell (RBC) Count 4.81 mill/uL (4.20-5.40); White Blood Cell (WBC) Count 14.1 thou/uL (4.8-10.8)
[2018-06-17 21:07] LABS: BHCG - Serum Negative (NEGATIVE); Pregs Control Background? CLEAR/WHITE (CLR/WHITE); Pregs Control Bar Appear? YES (CONTROL BAR)
[2018-06-17 21:25] LABS: ALT (SGPT) 15 U/L (8-55); AST (SGOT) 12 U/L (5-34); Acetaminophen Less than 6.0 mcg/mL (10.0-30.0); Albumin 4.6 g/dL (3.5-5.0); Alcohol 97 mg/dL (Less than 10); Alkaline Phosphatase 64 U/L (40-150); Anion Gap 14 mmol/L (10-20); BUN (Urea Nitrogen) 8 mg/dL (7.0-18.7); Bilirubin, Total 0.3 mg/dL (0.2-1.2); Calc. Creatinine Clearance 0 mL/min (70-130); Calcium 9.9 mg/dL (7.8-10.44); Carbon Dioxide 22 mmol/L (22-29); Chloride 106 mmol/L (98-107); Estimated GFR-MDRD Greater than 90; Globulin 3.2 g/dL (2.4-3.5); Glucose 97 mg/dL (70-105); Potassium 3.4 mmol/L (3.5-5.1); Protein, Total 7.8 g/dL (6.0-8.3); Salicylate Less than 8.0 mg/dL (15.0-30.0); Sodium 139 mmol/L (136-145)
[2018-06-17] MEDS ORDERED: Adacel (T-DAP) 0.5 ML SYRINGE ONE (21:53)
[2018-06-17] MEDS ORDERED: Bacitracin Zinc 1 Packet ONE (21:54)
[2018-06-17 22:24] LABS: Bilirubin Negative (Negative); Blood, Urine Negative (Negative); Clarity CLEAR (Clear); Glucose, Urine (Dipstick) Negative (Negative); Leukocyte Negative (Negative); Nitrite Negative (Negative); Protein, Urine (Dipstick) Negative (Neg-Trace); Specific Gravity, Urine 1.012 (1.002-1.036); Urobilinogen 0.2 mg/dL (0.2-1.0)
[2018-06-17] MEDS ORDERED: Lidocaine 1% PF 5 ML VIAL ONE (22:25)
[2018-06-17 22:33] LABS: Cocaine Metabolite Screen Not Detected (NotDetected); Medtox Reader # READER 1; Methamphetamine Not Detected (NotDetected); Phencyclidine (PCP) Not Detected (NotDetected); THC/Cannabinoid Screen Detected (NotDetected)
[2018-06-17 22:34] LABS: Amphetamine Not Detected (NotDetected); Barbiturates Screen Not Detected (NotDetected); Benzodiazepine Screen Not Detected (NotDetected); Medtox Control Line Valid? VALID (VALID); Methadone Not Detected (NotDetected); Opiate Screen Not Detected (NotDetected); Oxycodone Screen Not Detected (NotDetected); Tricyclic Screen Not Detected (NotDetected)
[2018-06-17] MEDS ORDERED: hydrOXYzine 25 MG TAB ONE (22:56)
[2018-06-18] MEDS ORDERED: Acetaminophen 500 MG TAB ONE (22:44)
== END 2018-06-19 12:45 ==
LOC: ERS 20:30
DX: S11.91XA Laceration without foreign body of unspecified part of neck, initial encounter (principal); R44.0 Auditory hallucinations; G40.909 Epilepsy, unspecified, not intractable, without status epilepticus; J45.909 Unspecified asthma, uncomplicated; F41.9 Anxiety disorder, unspecified; F32.9 Major depressive disorder, single episode, unspecified; F90.9 Attention-deficit hyperactivity disorder, unspecified type; F17.210 Nicotine dependence, cigarettes, uncomplicated; X78.1XXA Intentional self-harm by knife, initial encounter
CPT/HCPCS: 12001; 36415; 80053; 80306; 80307; 81003; 84443; 84703; 85025; 90471; 90715; 96374; 96376; J2001; J2405

== ENCOUNTER 2019-01-11 23:42 | Emergency (ER) | payer SELFPAY ==
[2019-01-12 00:09] LABS: #Basophils 0.1 thou/uL (0.0-0.2); #Eosinphils 0.4 thou/uL (0.0-0.7); #Lymphocytes 4.8 thou/uL (1.20-3.40); #Monocytes 0.9 thou/uL (0.11-0.59); #Neutrophils 7.3 thou/uL (1.40-6.50); %Basophils 0.6 % (0.0-1.0); %Eosinophils 2.7 % (0.0-10.0); %Lymphocytes 35.4 % (21.0-51.0); %Monocytes 6.8 % (0.0-10.0); %Neutrophils 54.6 % (42.0-75.0); Hemoglobin 13.9 g/dL (12.0-16.0); Mean Corpuscular HGB CONC 33.8 g/dL (32.0-36.0); Mean Corpuscular Volume 85.8 fL (78.0-98.0); Mean Platelet Volume 7.6 fL (7.4-10.4); Platelet Count 395 thou/uL (130-400); RBC Distribution Width 12.1 % (11.5-14.5); Red Blood Cell (RBC) Count 4.79 mill/uL (4.20-5.40); White Blood Cell (WBC) Count 13.4 thou/uL (4.8-10.8)
[2019-01-12 00:31] LABS: Pregnancy Test - Urine (BHCG) Negative (Negative); Pregu Control Background? CLEAR/WHITE (CLR/WHITE); Pregu Control Bar Appear? YES (CONTROL BAR); Specific Gravity 1.029 (1.002-1.036)
[2019-01-12 01:39] LABS: ALT (SGPT) 29 U/L (8-55); AST (SGOT) 17 U/L (5-34); Albumin 4.6 g/dL (3.5-5.0); Alkaline Phosphatase 71 U/L (40-150); Anion Gap 17 mmol/L (10-20); BUN (Urea Nitrogen) 14 mg/dL (7.0-18.7); Bilirubin, Total 0.3 mg/dL (0.2-1.2); Calc. Creatinine Clearance 0 mL/min (70-130); Carbon Dioxide 24 mmol/L (22-29); Chloride 105 mmol/L (98-107); Estimated GFR-MDRD 83; Globulin 3.4 g/dL (2.4-3.5); Glucose 84 mg/dL (70-105); Potassium 3.8 mmol/L (3.5-5.1); Sodium 142 mmol/L (136-145)
[2019-01-12 02:38] LABS: Bacteria/HPF None Seen HPF (None Seen); Bilirubin Negative (Negative); Blood, Urine 3+ (Negative); Clarity Turbid (Clear); Glucose, Urine (Dipstick) Normal (Negative); Leukocyte 25 Leu/uL (Negative); Nitrite Negative (Negative); Protein, Urine (Dipstick) 30 mg/dL (Neg-Trace); RBC/HPF Greater than 50 HPF (0-3)
[2019-01-12 18:34] LABS: Chlamydia by PCR Not Detected (NotDetected); GC by PCR Not Detected (NotDetected)
== END 2019-01-12 04:15 | disposition home or self-care (01) ==
LOC: ERS 23:42
DX: N94.6 Dysmenorrhea, unspecified (principal); G40.909 Epilepsy, unspecified, not intractable, without status epilepticus; J45.909 Unspecified asthma, uncomplicated; F41.9 Anxiety disorder, unspecified; F31.9 Bipolar disorder, unspecified; F90.9 Attention-deficit hyperactivity disorder, unspecified type; F17.290 Nicotine dependence, other tobacco product, uncomplicated
CPT/HCPCS: 36415; 80053; 81003; 81015; 81025; 85025; 87480; 87491; 87510; 87591; 87660; 99284

== ENCOUNTER 2019-09-21 07:07 | Emergency (ER) | payer SELFPAY ==
[2019-09-21 08:24] LABS: Bilirubin Negative (Negative); Blood, Urine Negative (Negative); Clarity Clear (Clear); Glucose, Urine (Dipstick) Normal (Negative); Leukocyte 75 Leu/uL (Negative); Nitrite Negative (Negative); Protein, Urine (Dipstick) Negative (Neg-Trace); Squamous Epithelial 0-3 HPF (0-3); Urobilinogen Normal mg/dL (Less than 2); WBC/HPF 21-50 HPF (0-3)
[2019-09-21 08:25] LABS: Bacteria/HPF 1+ HPF (None Seen)
[2019-09-21 08:26] LABS: Pregnancy Test - Urine (BHCG) Negative (Negative); Pregu Control Background? CLEAR/WHITE (CLR/WHITE); Pregu Control Bar Appear? YES (CONTROL BAR); Specific Gravity 1.014 (1.002-1.036)
== END 2019-09-21 09:23 | disposition home or self-care (01) ==
LOC: ERS 07:07
DX: H10.89 Other conjunctivitis (principal); N30.00 Acute cystitis without hematuria; G40.909 Epilepsy, unspecified, not intractable, without status epilepticus; F41.9 Anxiety disorder, unspecified; F31.9 Bipolar disorder, unspecified; F90.9 Attention-deficit hyperactivity disorder, unspecified type; F17.210 Nicotine dependence, cigarettes, uncomplicated
CPT/HCPCS: 81003; 81015; 81025; 87086; 99283

== ENCOUNTER 2020-05-29 09:20 | Emergency (ER) | payer SELFPAY ==
[2020-05-30 08:46] LABS: SARS-CoV-2 PCR by NAA Not Detected (NotDetected)
== END 2020-05-29 10:13 | disposition home or self-care (01) ==
LOC: ERS 09:20
DX: Z20.822 Contact with and (suspected) exposure to COVID-19 (principal); J45.909 Unspecified asthma, uncomplicated; G40.909 Epilepsy, unspecified, not intractable, without status epilepticus; F17.210 Nicotine dependence, cigarettes, uncomplicated
CPT/HCPCS: 87635; 99283; U0003; U0005

== ENCOUNTER 2020-10-19 11:58 | Emergency (ER) | payer SELFPAY | END 2020-10-19 13:46 | disposition home or self-care (01) | LOC: ERS 11:58 | DX: O9A.211 Injury, poisoning and certain other consequences of external causes complicating pregnancy, first trimester (principal); S76.912A Strain of unspecified muscles, fascia and tendons at thigh level, left thigh, initial encounter; S76.911A Strain of unspecified muscles, fascia and tendons at thigh level, right thigh, initial encounter; O99.331 Smoking (tobacco) complicating pregnancy, first trimester; F17.210 Nicotine dependence, cigarettes, uncomplicated; X58.XXXA Exposure to other specified factors, initial encounter | CPT/HCPCS: 99281 ==

== ENCOUNTER 2020-11-05 11:36 | Emergency (ER) | payer MEDICAID ==
[2020-11-05 13:03] LABS: #Eosinphils 0.4 thou/uL (0.0-0.7); #Lymphocytes 3.1 thou/uL (1.20-3.40); #Monocytes 0.9 thou/uL (0.11-0.59); #Neutrophils 8.2 thou/uL (1.40-6.50); %Eosinophils 3.4 % (0.0-10.0); %Lymphocytes 24.3 % (21.0-51.0); %Monocytes 7.2 % (0.0-10.0); %Neutrophils 65.1 % (42.0-75.0); Hemoglobin 12.8 g/dL (12.0-16.0); Mean Corpuscular HGB CONC 34.9 g/dL (32.0-36.0); Mean Corpuscular Hemoglobin 29.2 pg (27.0-31.0); Mean Corpuscular Volume 83.9 fL (78.0-98.0); Mean Platelet Volume 7.9 fL (7.4-10.4); Platelet Count 342 thou/uL (130-400); RBC Distribution Width 11.7 % (11.5-14.5); Red Blood Cell (RBC) Count 4.36 mill/uL (4.20-5.40); White Blood Cell (WBC) Count 12.6 thou/uL (4.8-10.8)
[2020-11-05 13:58] LABS: Bilirubin Negative (Negative); Blood, Urine Negative (Negative); Clarity Clear (Clear); Glucose, Urine (Dipstick) Normal (Negative); Ketone, Urine Negative (Negative); Leukocyte Negative Leu/uL (Negative); Nitrite Negative (Negative); Protein, Urine (Dipstick) Negative (Neg-Trace); Specific Gravity, Urine 1.027 (1.002-1.036)
[2020-11-05] MEDS ORDERED: Acetaminophen 500 MG TAB ONE (14:06)
== END 2020-11-05 14:32 | disposition home or self-care (01) ==
LOC: ERS 11:36
DX: O98.511 Other viral diseases complicating pregnancy, first trimester (principal); U07.1 COVID-19; O99.331 Smoking (tobacco) complicating pregnancy, first trimester; O99.891 Other specified diseases and conditions complicating pregnancy; R10.30 Lower abdominal pain, unspecified; Z3A.11 11 weeks gestation of pregnancy
CPT/HCPCS: 36415; 76856; 81003; 84702; 85025; 86900; 86901; 87086; 93976

== ENCOUNTER 2023-01-07 07:03 | Emergency (ER) | payer OTHER ==
[2023-01-07] MEDS ORDERED: Amoxicillin/Potassium Clav 875 MG TAB ONE ×2 (07:31→07:33)
[2023-01-07] MEDS ORDERED: Ketorolac Tromethamine 30 MG/ML VIAL ONE (07:31)
== END 2023-01-07 07:41 | disposition home or self-care (01) ==
LOC: ERS 07:03
DX: H66.92 Otitis media, unspecified, left ear (principal); H73.92 Unspecified disorder of tympanic membrane, left ear; Z87.891 Personal history of nicotine dependence
CPT/HCPCS: 96372; 99282; J1885

== ENCOUNTER 2023-04-17 12:08 | Emergency (ER) | payer OTHER, SELFPAY ==
[2023-04-17 12:50] LABS: #Eosinphils 0.2 thou/uL (0.0-0.7); #Monocytes 0.5 thou/uL (0.11-0.59); #Neutrophils 6.8 thou/uL (1.40-6.50); %Basophils 0.3 % (0.0-1.0); %Eosinophils 2.2 % (0.0-10.0); %Monocytes 5.3 % (0.0-10.0); %Neutrophils 68.9 % (42.0-75.0); Hematocrit 42.1 % (36.0-47.0); Hemoglobin 14.6 g/dL (12.0-16.0); Mean Corpuscular HGB CONC 34.7 g/dL (32.0-36.0); Mean Corpuscular Hemoglobin 29.1 pg (27.0-31.0); Mean Corpuscular Volume 83.9 fl (78.0-98.0); Mean Platelet Volume 9.4 fL (7.4-10.4); Platelet Count 446 10x3/uL (130-400); RBC Distribution Width 13.1 % (11.5-14.5); Red Blood Cell (RBC) Count 5.02 mill/uL (4.20-5.40); White Blood Cell (WBC) Count 9.9 10x3/uL (4.8-10.8)
[2023-04-17 13:15] LABS: ALT (SGPT) 30 U/L (8-55); AST (SGOT) 20 U/L (5-34); Albumin 4.5 g/dL (3.5-5.0); Alkaline Phosphatase 66 U/L (40-110); Anion Gap 14 mmol/L (10-20); BUN (Urea Nitrogen) 12 mg/dL (7.0-18.7); Bilirubin, Total 0.6 mg/dL (0.2-1.2); Calc. Creatinine Clearance 0 mL/min (70-130); Calcium 9.5 mg/dL (7.8-10.44); Carbon Dioxide 20 mmol/L (22-29); Chloride 105 mmol/L (98-107); Estimated GFR 104; Globulin 3.4 g/dL (2.4-3.5); Glucose 130 mg/dL (70-105); Lipase 16 U/L (8-78); Potassium 3.1 mmol/L (3.5-5.1); Protein, Total 7.9 g/dL (6.0-8.3); Sodium 136 mmol/L (136-145)
[2023-04-17] MEDS ORDERED: Acetaminophen 500 MG TAB ONE (14:28)
[2023-04-17 14:29] LABS: Bilirubin Negative (Negative); Blood, Urine 3+ (Negative); CAUTI Indications for Culture Dysuria,urgency,freq; Clarity Clear (Clear); Glucose, Urine (Dipstick) Normal (Negative); Ketone, Urine Negative (Negative); Leukocyte Negative Leu/uL (Negative); Nitrite Negative (Negative); Protein, Urine (Dipstick) 20 mg/dL (Neg-Trace); Specific Gravity, Urine 1.032 (1.002-1.036); Urobilinogen 3 mg/dL (Less than 2); WBC/HPF 0-3 HPF (0-3); pH, Urine 5.5 (5.0-9.0)
[2023-04-17 14:34] LABS: Bacteria/HPF 1+ HPF (None Seen)
[2023-04-17 14:35] LABS: Pregnancy Test - Urine (BHCG) Negative (Negative); Pregu Control Background? CLEAR/WHITE (CLR/WHITE); Pregu Control Bar Appear? YES (CONTROL BAR); Specific Gravity 1.032 (1.002-1.036); Urine Culture Reflex No No
[2023-04-17] MEDS ORDERED: Lidocaine 1% PF 5 ML VIAL ONE (14:58)
[2023-04-17] MEDS ORDERED: cefTRIAXone (ROCEPHIN) 500 MG VIAL ONE (14:58)
[2023-04-17 15:25] LABS: SARS-CoV-2 NAA Rapid Test Not Detected (NotDetected)
[2023-04-18 23:37] LABS: Chlamydia by PCR, Vaginal Swab Not Detected (NotDetected)
[2023-04-19 08:13] LABS: GC by PCR, Vaginal Swab Not Detected (NotDetected)
== END 2023-04-17 15:26 | disposition home or self-care (01) ==
LOC: ERS 12:08
DX: N73.9 Female pelvic inflammatory disease, unspecified (principal); Z20.822 Contact with and (suspected) exposure to COVID-19
CPT/HCPCS: 36415; 80053; 81001; 81025; 83690; 85025; 87480; 87491; 87510; 87591; 87660; 96372; 99284; J0696